=== PATIENT | female | born 1950 | race Caucasian/White ===

== ENCOUNTER 2022-05-15 17:14 | Emergency (ER) | payer OTHER, SELFPAY ==
[2022-05-15 17:14] VITALS: BP 203/99; PULSE 99; RESP 14; TEMP 37.2; O2SAT 100; BMI 26.2
--- NOTE | 2022-05-15 18:51 | EDS_ITS ---
HPI History of Present Illness Chief Complaint: Lower Extremity Injury Informant: patient Narrative Narrative: Patient had a slip and twisted her left ankle yesterday on steps. She states nothing helps hurt. She thought she just strained it. She went to see her private physician today. They ordered x-rays that were done at [facility]. Her primary doctor called [facility]. They were going to fix this on the sixth. But it sounds like there is nobody to get a splint or cast on this. [facility] said they would send the images over to us and for the patient to be seen here. Patient denies any other injury. She is on no medications She has multiple allergies [facility] Medical History no medical history Home Medications hydrocodone-acetaminophen 5-325mg 5mg-325mg 1 tab PO Q6H PRN pain 3 days #10 tabs 05/15/22 [Rx Last Taken Unknown] Allergy/AdvReac Type Severity Reaction Status Date / Time atropine [From Urised] Allergy Hives Verified 05/15/22 17:18 benzoic acid [From Urised] Allergy Hives Verified 05/15/22 17:18 cephalexin Allergy Hives Verified 05/15/22 17:18 ciprofloxacin Allergy Hives Verified 05/15/22 17:18 clindamycin Allergy Hives Verified 05/15/22 17:18 doxycycline Allergy Hives Verified 05/15/22 17:18 hyoscyamine [From Urised] Allergy Hives Verified 05/15/22 17:18 methenamine [From Urised] Allergy Hives Verified 05/15/22 17:18 methylene blue [From Urised] Allergy Hives Verified 05/15/22 17:18 Penicillins Allergy Hives Verified 05/15/22 17:18 pseudoephedrine Allergy Hives Verified 05/15/22 17:18 [From Sudafed] salicylates [From Urised] Allergy Hives Verified 05/15/22 17:18 Sulfa (Sulfonamide Allergy Hives Verified 05/15/22 17:18 Antibiotics) sulfamethoxazole Allergy Hives Verified 05/15/22 17:18 [From Bactrim] trimethoprim [From Bactrim] Allergy Hives Verified 05/15/22 17:18 acetaminophen [From NyQuil] AdvReac Other Verified 05/15/22 17:18 dextromethorphan AdvReac Other Verified 05/15/22 17:18 [From NyQuil] doxylamine [From NyQuil] AdvReac Other Verified 05/15/22 17:18 Social History Smoking Status: Unknown if ever smoked ROS ROS ED Constitutional Constitutional ED: Denies fever(s) ENT ENT ED: Denies rhinorrhea Cardiovascular Cardiovascular: Denies chest pain or palpitations Respiratory/Chest Respiratory/Chest: Denies cough Gastrointestinal Gastrointestinal: Denies nausea or vomiting Genitourinary Genitourinary ED: Denies hematuria Musculoskeletal Musculoskeletal: Reports other Details: Left ankle pain. ; Denies back pain or neck pain Integumentary Reports other Details: No laceration or abrasion but she does have bruising around the left ankle. Neurologic Neurologic: Denies paresthesias Hematologic/Lymphatic Hematologic/Lymphatic: Denies easy bleeding or easy bruising EXAM Physical Exam Const Vital Signs: 05/15/22 17:14 05/15/22 19:33 Temperature 99.0 F Temperature Source Temporal Pulse Rate 99 95 Respiratory Rate 14 19 H Blood Pressure 203/99 H 161/107 H Blood Pressure Mean 133 125 Pulse Ox 100 98 Oxygen Delivery Method Room Air Room Air Positive well nourished General Appearance ED: NAD HEENT normocephalic and atraumatic Neck full ROM Thyroid: Negative for tender Resp normal respiratory effort and clear to auscultation bilaterally Cardio regular rate and regular rhythm Back/Spine no CVA tenderness Extremity Extremity Narrative: Patient does have some swelling and ecchymosis to the left ankle and lower tib- fib area. I do not see any deformity though. Pulses are still intact. Capillary refill and sensation is still intact. Achilles is intact on exam. I did not stress the ankle due to history of fracture. Neuro no sensory deficits noted Sensorium / Orientation: alert Motor Exam: strength 5/5 throughout Psych mental status grossly normal Skin Skin Narrative: Swelling and contusions but no laceration or break in the skin. No blistering. MDM MDM MDM Narrative Medical decision making narrative: I tried to images of the patient. I did get a printout of the read on her films but without actual images it is hard to appropriately make sure I am treating her right. She is also been up moving around since the images. Therefore I will repeat imaging here. We did repeat images. Basically this patient has a bimalleolar fracture with no significant displacement. She is placed in a boot orthosis. She has crutches but states she has a walker at home she can use. She will follow-up with orthopedics. I will give her a number of Dr. Burr. We discussed elevation above the heart, ice, rest reasons to return. I will provide pain meds. Radiography Diagnostic Testing: Clinical Impression(s) from Imaging Studies Ankle X-Ray 05/15/22 19:02 IMPRESSION: Acute fractures of the distal fibular plafond and tibia without significant separation of fracture fragments Electronically Signed: Tuan Colby MD at 19:25 EST , Bimalleolar fracture with minimal to no displacement Discharge Plan Triage Chief Complaint: Lower Extremity Injury ED Provider: Roly Bullock Dx/Rx/DC Orders Clinical Impression: Bimalleolar fracture of right ankle Instructions: ED Fracture, Lower Extremity Prescriptions: New hydrocodone-acetaminophen 5-325 mg tablet 1 tab PO Q6H PRN (Reason: pain) 3 Days Qty: 10 0RF Primary Care Provider: Aster Maddox Referrals: Crow Burr DO [Med Staff - Active Staff] - Keep Polly appointment (Call tomorrow for appointment within the next few days.) Gamal Meadows MD [Non-Staff] - Disposition Disposition: Home, Self Care
--- NOTE | 2022-05-15 19:02 | RAD_ITS ---
STUDY: X-RAY - LEFT ANKLE REASON FOR EXAM: Female, 72 years old. trauma, fracture TECHNIQUE: 3 view(s) of the ankle. COMPARISON: None. FINDINGS: There is a transversely oriented fracture through the distal fibular plafond with minimal separation of fracture fragments. There is also an intra-articular hairline fracture of the distal tibia. Normal medial and lateral malleoli. Normal tibiotalar articulation and ankle mortise. Normal visualized talus. Small plantar calcaneal spur The visualized subtalar, talonavicular, calcaneocuboid and tarsal articulations are normal. Diffuse bimalleolar soft tissue swelling.. RAD/Ankle min 3 Views IMPRESSION: Acute fractures of the distal fibular plafond and tibia without significant separation of fracture fragments Electronically Signed: Tuan Colby MD at 19:25 EST ,
[2022-05-15 19:33] VITALS: BP 161/107; PULSE 95; RESP 19; O2SAT 98
== END 2022-05-15 21:21 | disposition home or self-care (01) ==
PROVIDERS: Emergency Provider Emergency Medicine; Visit Provider Emergency Medicine
DX: S82.844A Nondisplaced bimalleolar fracture of right lower leg, initial encounter for closed fracture (principal); W10.9XXA Fall (on) (from) unspecified stairs and steps, initial encounter
CPT/HCPCS: 73610; 99283